=== PATIENT | male | born 1965 | race African-American/Black ===

== ENCOUNTER 2017-12-18 01:59 | Emergency (ER) | payer SELFPAY ==
[~2017-12-18] VITALS: Ht 172.7 cm; Wt 72.6 kg
[2017-12-18] MEDS ORDERED: SIMVASTATIN10 MG ORAL (02:01)
[2017-12-18] MEDS ORDERED: LISINOPRIL5 MG ORAL (02:01)
[2017-12-18] MEDS ORDERED: METOPROLOL TART25 MG ORAL (02:01)
--- NOTE | 2017-12-18 02:10 | Emergency Room Report ---
History of Present Illness General Chief Complaint: Palpitations Source: Patient Present Illness HPI This is a 52-year-old male with history of IL in the past. He also has a history of hypertension. He presents with chief complaint of anxiety. He [place]. He said that he has anxiety and palpitation. Has a history of "massive heart attack" 3 years ago at [facility] in [place]. He denies any chest pain. No nausea no vomiting no fever chills. Denies any other complaint. He was at [facility] 3 days ago and was kept overnight. He said to check blood work and everything was normal. Denies any drug use. Allergies: Coded Allergies: No Known Allergies (Unverified , 12/18/17) Patient History Past Medical History: see triage record, old chart reviewed, HTN, IL, CAD Past Surgical History: other Pertinent Family History: none Social History: Denies: smoking Immunizations: other Reviewed Nursing Documentation: PMH: Agreed; PSxH: Agreed Nursing Documentation-PMH Hx Cardiac Problems: Yes - mi 3yrs ago Review of Systems Eye: Denies: eye pain, blurred vision ENT: Denies: ear pain, nose congestion, throat swelling Respiratory: Denies: cough, shortness of breath Cardiovascular: Reports: palpitations; Denies: chest pain Gastrointestinal: Denies: abdominal pain, diarrhea, nausea, vomiting Musculoskeletal: Denies: back pain, joint pain Skin: Denies: rash Neurological: Denies: headache, numbness Endocrine: Denies: increased thirst, increased urine Hematologic/Lymphatic: Denies: easy bruising All Other Systems: negative except mentioned in HPI Physical Exam Vital Signs Date Time Temp Pulse Resp B/P (MAP) Pulse Ox O2 Delivery O2 Flow Rate FiO2 12/18/17 01:58 98.0 104 16 165/104 98 Room Air 98.1 vitals with high blood pressure Sp02 EP Interpretation: reviewed, normal General Appearance: well appearing, no apparent distress, alert Head: normocephalic, atraumatic Eyes: bilateral eye PERRL, bilateral eye EOMI ENT: hearing grossly normal, normal pharynx Neck: full range of motion, supple, no meningismus Respiratory: chest non-tender, lungs clear, normal breath sounds Cardiovascular #1: regular rate, rhythm, no murmur Gastrointestinal: normal bowel sounds, non tender, no mass, no organomegaly, no bruit, non-distended Musculoskeletal: back normal, gait/station normal, normal range of motion Psychiatric: mood/affect normal Skin: warm/dry Medical Decision Making Diagnostic Impression: Primary Impression: Anxiety attack Additional Impressions: Palpitations Hypertension Qualified Codes: I10 - Essential (primary) hypertension Medication refill Amphetamine abuse ER Course Patient presents with anxiety and palpitation. He appear to be very calm. I suspect that he does want a place to sleep. Patient otherwise stable. We'll discharge home. I will refill his medication. Lab Results Impression labs normal EKG Diagnostic Results Rate: normal Rhythm: NSR ST Segments: no acute changes ASA given to the pt in ED: Yes Rhythm Strip Diag. Results Rhythm Strip Time: 03:22 EP Interpretation: yes Rate: 80 Rhythm: NSR, no PVC's, no ectopy Last Vital Signs Date Time Temp Pulse Resp B/P (MAP) Pulse Ox O2 Delivery O2 Flow Rate FiO2 12/18/17 01:58 98.0 104 16 165/104 98 Room Air 98.1 Status: improved Disposition: HOME, SELF-CARE Condition: Stable Scripts Fluticasone Propionate (Flonase Allergy Relief) 9.9 Ml [place].susp 9.9 ML NS DAILY, #1 UNIT Prov: ILIA BHANDARI M.D. 12/18/17 Simvastatin (ZOCOR) 20 Mg Tablet 20 MG ORAL BEDTIME, #30 TAB Prov: ILIA BHANDARI M.D. 12/18/17 Metoprolol Succinate* (METOPROLOL SUCCINATE*) 25 Mg Tab.er.24h 25 MG ORAL DAILY, #30 TAB Prov: ILIA BHANDARI M.D. 12/18/17 Lisinopril* (LISINOPRIL*) 10 Mg Tablet 10 MG ORAL DAILY, #30 TAB Prov: ILIA BHANDARI M.D. 12/18/17 Patient Instructions: Palpitations Additional Instructions: Follow-up with your DrMildred in 3-7 days. Return if symptom worsen. ILIA BHANDARI M.D. Dec 18, 2017 02:10
[2017-12-18 02:25] VITALS: BP 140/93
[2017-12-18] MEDS ORDERED: LISINOPRIL10 MG ORAL (03:24)
[2017-12-18] MEDS ORDERED: SIMVASTATIN20 MG ORAL (03:24)
[2017-12-18] MEDS ORDERED: FLONASE ALLERG9.9 ML NS (03:24)
[2017-12-18] MEDS ORDERED: METOPROLOL SUCC25 MG ORAL (03:24)
[2017-12-18 03:25] LABS: APPEARANCE,URINE CLEAR; BILIRUBIN, URINE NEGATIVE (NEGATIVE); GLUCOSE, URINE (UA) NEGATIVE (NEGATIVE); KETONES,URINE 3+ (NEGATIVE); LEUKOCYTE ESTERASE ,URINE NEGATIVE (NEGATIVE); NITRITE,URINE NEGATIVE (NEGATIVE); PH,URINE 5 (4.5-8.0); PROTEIN,URINE 2+ (NEGATIVE); UROBILINOGEN,URINE 1 MG/DL (0.0-1.0)
[2017-12-18 03:26] LABS: COLOR,URINE YELLOW
[2017-12-18 04:19] VITALS: BP 118/78
--- NOTE | 2017-12-23 16:08 | Cardiology Report ---
APPROVED REPORT EKG Measurement Heart [id number] Sinus tachycardia Biatrial enlargement Pulmonary disease pattern Left anterior fascicular block Abnormal ECG
== END 2017-12-18 04:18 | disposition home or self-care (01) ==
LOC: EDBD 01:59 → EMR 02:33
DX: F41.9 Anxiety disorder, unspecified (principal); R00.2 Palpitations; I10 Essential (primary) hypertension
CPT/HCPCS: 80307; 81003; 84484; 93005; 99283

== ENCOUNTER 2019-06-17 04:23 | Emergency (ER) | payer MEDICAID ==
[~2019-06-17] VITALS: Ht 188 cm; Wt 69.4 kg
[~2019-06-17 04:23] MED LIST: FLONASE ALLERG9.9 ML NS; LISINOPRIL10 MG ORAL; LISINOPRIL5 MG ORAL; METOPROLOL SUCC25 MG ORAL; METOPROLOL TART25 MG ORAL; SIMVASTATIN10 MG ORAL; SIMVASTATIN20 MG ORAL
[2019-06-17 04:33] VITALS: BP 156/89
--- NOTE | 2019-06-17 04:34 | Emergency Room Report ---
History of Present Illness General Chief Complaint: Behavioral Complaint Source: Patient, EMS Present Illness HPI This is a 54-year-old male with no past medical history. He presents with complaint of feeling anxious after smoking methamphetamine. He said he felt better now. He said his heart was beating fast. Denies any fever chills but denies any nausea vomiting. No suicidal thoughts homicidal thought. Denies any hallucination. Allergies: Coded Allergies: No Known Allergies (Unverified , 12/18/17) Patient History Past Medical History: see triage record, old chart reviewed Past Surgical History: none Pertinent Family History: none Social History: Reports: smoking, drug use Immunizations: other Reviewed Nursing Documentation: PMH: Agreed; PSxH: Agreed Nursing Documentation-PMH Hx Cardiac Problems: Yes - mi 3yrs ago Review of Systems Eye: Denies: eye pain, blurred vision ENT: Denies: ear pain, nose congestion, throat swelling Respiratory: Denies: cough, shortness of breath Cardiovascular: Reports: palpitations; Denies: chest pain Gastrointestinal: Denies: abdominal pain, diarrhea, nausea, vomiting Musculoskeletal: Denies: back pain, joint pain Skin: Denies: rash Neurological: Denies: headache, numbness Endocrine: Denies: increased thirst, increased urine Hematologic/Lymphatic: Denies: easy bruising All Other Systems: negative except mentioned in HPI Physical Exam Vital Signs Date Time Temp Pulse Resp B/P (MAP) Pulse Ox O2 Delivery O2 Flow Rate FiO2 06/17/19 04:24 98.6 98 18 156/89 (111) 99 Room Air vitals with htn Sp02 EP Interpretation: reviewed, normal General Appearance: well appearing, no apparent distress, alert Head: normocephalic, atraumatic Eyes: bilateral eye PERRL, bilateral eye EOMI ENT: hearing grossly normal, normal pharynx Neck: full range of motion, supple, no meningismus Respiratory: chest non-tender, lungs clear, normal breath sounds Cardiovascular #1: regular rate, rhythm, no murmur Gastrointestinal: normal bowel sounds, non tender, no mass, no organomegaly, no bruit, non-distended Musculoskeletal: back normal, normal range of motion, gait/station normal Psychiatric: mood/affect normal Medical Decision Making Diagnostic Impression: Primary Impression: Behavioral disorder Additional Impression: Drug-induced anxiety disorder ER Course This patient presents with anxiety induced by drugs. No suicidal thoughts homicidal thought. No criteria for 5150. Will discharge home. Last Vital Signs Date Time Temp Pulse Resp B/P (MAP) Pulse Ox O2 Delivery O2 Flow Rate FiO2 06/17/19 04:24 98.6 98 18 156/89 (111) 99 Room Air Status: improved Disposition: HOME, SELF-CARE Condition: Stable Patient Instructions: Self-Destructive Behavior Additional Instructions: Abstain from drugs and alcohol. Follow-up with your doctor in 7 days. Go to rehab. Return if worse. Ben Tovar MD Jun 17, 2019 04:34
--- NOTE | 2019-06-17 04:36 | NUR ---
ER Nurse Note: Pt brought in by ambulance 826 from home c/o anxiety for a few hours. Pt stated he took meth and felt anxious afterwards. Pt denies shortness of breath, chest pain, n/v. Pt stated he had a stent placed around 4 years ago which added to his anxiety. VSS, RA. All safety measures met; will continue to montior.
[2019-06-17] MEDS ORDERED: LORazepam 1mg tab ORAL ONE (04:45)
[2019-06-17 04:55] VITALS: BP 156/89
--- NOTE | 2019-06-17 04:55 | NUR ---
ED Nurse Note: Pt cleared by health care Provider for discharge. DC instructions/prescription was given and explained to pt and verbalized understanding of teachings. Instructed pt to follow up with primary care physican within one week. All medical deviecs such as ID band removed. Pt is AAO x4, ambulatory and left with all personal belongings.
== END 2019-06-17 04:55 | disposition home or self-care (01) ==
LOC: EDBD 04:23 → EDUNIT# 04:23 → EMR 04:40
DX: F15.180 Other stimulant abuse with stimulant-induced anxiety disorder (principal); F91.9 Conduct disorder, unspecified; I25.2 Old myocardial infarction; F17.200 Nicotine dependence, unspecified, uncomplicated
CPT/HCPCS: 99283